=== PATIENT | male | born 1965 | race Caucasian/White ===

== ENCOUNTER → 2023-05-28 13:58 | Outpatient (CLI) | payer OTHER, MEDICAID, SELFPAY ==
--- NOTE | 2023-05-28 14:00 | DI.MRI.S_ITS ---
PROCEDURE: MR LUMBAR SPINE WO/W CON INDICATIONS: loss of bladder control, progressing weakness thorax to feet TECHNIQUE: Noncontrast sagittal T1 spin echo and T2 fast spin echo, sagittal STIR, axial T1 and T2 fast spin echo through the lumbar spine. In cases with scoliosis, additional coronal T2 fast spin echo may be performed. After the administration of contrast, sagittal and axial T1 spin echo with fat saturation through the lumbar spine. COMPARISON: None. FINDINGS: Image quality: Excellent. Alignment and curvature: There is normal bony alignment. Marrow: Marrow is of normal overall signal. No acute vertebral body compression fractures. No suspicious marrow enhancement. Spinal cord: Conus medullaris terminates at the L1 level. Visualized spinal cord demonstrates normal signal, without suspicious enhancement. Paraspinous soft tissues: No paravertebral masses or abnormal enhancement. T12-L1: Posterior disc bulge results in mild spinal canal stenosis. Narrowing of the lateral recess. No significant foraminal narrowing. L1-L2: Small disc bulge with concurrent central disc protrusions in mild spinal canal stenosis. Mild facet arthrosis results in mild bilateral foraminal narrowing. L2-L3: Broad disc bulge with concurrent central disc protrusion results in mild spinal canal stenosis and slight narrowing of the left lateral recess. Facet arthrosis results in mild bilateral foraminal narrowing. L3-L4: Broad disc bulge results in mild spinal canal narrowing and bilateral lateral recess narrowing. Facet arthrosis results in mild foraminal narrowing. L4-L5: Small central disc protrusion without significant spinal canal narrowing. Facet arthrosis results in mild foraminal narrowing. L5-S1: No significant spinal canal stenosis pre facet arthrosis field salts and mild foraminal narrowing.. IMPRESSION: Multilevel disc disease resulting in mild spinal canal stenosis. Multilevel facet arthrosis resulting in mild bilateral foraminal narrowing. Dictated by: Giorgio Verde M.D. on 05/28/2023 at 15:43 Approved by: Giorgio Verde M.D. on 05/28/2023 at 15:48
--- NOTE | 2023-05-28 14:00 | DI.MRI.S_ITS ---
PROCEDURE: MR THORACIC SPINE WO/W CON INDICATIONS: loss of bladder control, progressing weakness thorax to feet TECHNIQUE: Noncontrast sagittal T1 spin echo and T2 fast spin echo, sagittal STIR, axial T1 and T2 fast spin echo through the thoracic spine. After the administration of contrast, axial and sagittal T1 spin echo with fat saturation through the thoracic spine. COMPARISON: [facility], , MRI C AND T SPINE WO CONTRAST, 12/27/2017, 18:27. FINDINGS: Image quality: Excellent. Alignment and curvature: There is normal bony alignment. Marrow: Marrow is of normal overall signal. No acute vertebral body compression fractures. Spinal cord: Visualized thoracic spinal cord is of normal signal and size, without abnormal enhancement. Cord signal changes within the cervical spine. Paraspinous soft tissues: No paravertebral masses or abnormal enhancement. Miscellaneous: On the margins of the exam not completely delineated near the level of C5-C6 there is a large probably calcified posterior disc osteophyte complex resulting in severe spinal canal stenosis and associated cord disc changes t. This large posterior process extends several cervical segment levels. Posterior fixation of T1-T2 T8-T9: Prominent facet hypertrophy results in mild spinal canal stenosis and bilateral foraminal narrowing. T10-T11: Prominent facet hypertrophy resulting in mild spinal canal stenosis and bilateral foraminal narrowing. IMPRESSION: 1. Partially evaluated cervical spinal canal stenosis at C7-C8 from a large posterior disc osteophyte complex with cord signal changes. Recommend dedicated cervical imaging. 2. Multilevel [id number] cervical spinal canal stenosis at T8-T9 and T10-T11 secondary to facet hypertrophy. Dictated by: Giorgio Verde M.D. on 05/28/2023 at 15:31 Approved by: Giorgio Verde M.D. on 05/28/2023 at 15:42
== END ==
LOC: MRI 13:58
PROVIDERS: PCP Physician Assistant; Referring Provider Physician Assistant; Visit Provider Physician Assistant
DX: S39.92XA Unspecified injury of lower back, initial encounter (principal); M48.02 Spinal stenosis, cervical region; M48.04 Spinal stenosis, thoracic region; M47.814 Spondylosis without myelopathy or radiculopathy, thoracic region; M51.26 Other intervertebral disc displacement, lumbar region; M51.36 Other intervertebral disc degeneration, lumbar region; M47.816 Spondylosis without myelopathy or radiculopathy, lumbar region; M48.061 Spinal stenosis, lumbar region without neurogenic claudication; M62.50 Muscle wasting and atrophy, not elsewhere classified, unspecified site; R32 Unspecified urinary incontinence; R20.0 Anesthesia of skin; Z98.1 Arthrodesis status; W19.XXXA Unspecified fall, initial encounter
CPT/HCPCS: 72157; 72158; A9579

== ENCOUNTER 2025-01-25 15:23 | Emergency (ER) | payer OTHER, SELFPAY ==
[2025-01-25 15:47] VITALS: BP 149/74; PULSE 64; RESP 18; TEMP 36.9; O2SAT 98; BMI 22.4
[2025-01-25 19:25] VITALS: BP 113/65; PULSE 65; RESP 18; TEMP 36.8; O2SAT 98
--- NOTE | 2025-01-25 20:14 | ED.BACK ---
HPI - Back Pain/Injury <Kristian Du MD - Last Filed: 01/26/25 16:09> General Chief Complaint: Back Pain/Injury Stated Complaint: back pain/injury//weakness Time Seen by Provider: 01/25/25 19:31 Source: patient History of Present Illness HPI Narrative: 59-year-old male with ongoing back and neck pain issues, had multilevel cervical spine surgery 2016 [facility], more recently last year 2023 at [facility] had arthroscopic upper thoracic spinal clean out with collagen implant by neurosurgeon Dr. Luna, has been in contact with the office with complaint of recent weeks bilateral quadriceps area pain and spasm, taking oral ibuprofen, increasing low and mid upper back pain. Has ongoing intermittent urinary incontinence, recently worsened. Ambulates via walker at his home, has a roommate. He believes his neurosurgeon is placed order for MRI of the spine, unclear what levels were intended to be imaging, was hoping to get imaging of his spine tonight. No fevers or chills. Related Data Previous Rx's ?Medication ?Instructions ?Recorded hydrocodone 5 mg-acetaminophen 325 1 tab PO Q6H PRN pain #10 tabs 01/26/25 mg tablet methocarbamol 750 mg tablet 750 mg PO Q8H PRN muscle spasm #14 01/26/25 tabs prednisone 20 mg tablet 20 mg PO DAILY #5 tabs 01/26/25 Allergies Allergy/AdvReac Type Severity Reaction Status Date / Time No Known Allergies Allergy Uncoded 01/25/25 15:47 Patient History <Kristian Du MD - Last Filed: 01/26/25 16:09> Medical History (Updated 01/26/25 @ 09:29 by Ani Johnson DO) Chronic back pain (~2016) Chicken pox (~1974) Surgical History (Updated 02/24/22 @ 15:01 by Vania Ann PA-C) Anesthesia History of laminectomy History of knee surgery (~02/2017) Family History (Updated 08/29/21 @ 22:34 by Kelsi Wu) Mother Stroke Social History Smoking Status: Never smoker Smoking Status: Never smoker Exam <Kristian Du MD - Last Filed: 01/26/25 16:09> Narrative Exam Narrative: GENERAL: Well-developed patient, in mild distress. Sitting in wheelchair position of comfort, does not want to lie down flat on a gurney. HEAD: Atraumatic. Normocephalic. EYES: Pupils equal round and reactive. Extraocular motions intact. No scleral icterus. No injection or drainage. ENT: Nose without bleeding, purulent drainage. Throat without erythema, tonsillar hypertrophy or exudate. Airway patent. NECK: Trachea midline. Non tender CARDIOVASCULAR: Regular rate and rhythm without murmurs, gallops, or rubs. RESPIRATORY: Clear to auscultation. Breath sounds equal bilaterally. No wheezes, rales, or rhonchi. GASTROINTESTINAL: Abdomen soft, non-tender, nondistended. EXTREMITIES: No edema or joint tenderness. BACK: Nontender without deformity or crepitance. No flank tenderness. Upper thoracic midline well-healed scar. No midline tenderness or paraspinal muscular tenderness cervical spine, thoracic spine, lumbar spine. In sitting position of comfort patient able to extend his legs at knees about 60? bilaterally. NEURO: AOx3. Motor functions grossly nonfocal. SKIN: No rash or erythema of visible areas Initial Vital Signs Initial Vital Signs: Vital Signs Temperature 98.4 F 01/25/25 15:47 Pulse Rate 64 01/25/25 15:47 Respiratory Rate 18 01/25/25 15:47 Blood Pressure 149/74 H 01/25/25 15:47 Pulse Oximetry 98 01/25/25 15:47 Oxygen Delivery Method Room Air 01/25/25 15:47 <Ani Johnson DO - Last Filed: 01/26/25 14:26> Initial Vital Signs Initial Vital Signs: Vital Signs Temperature 98.4 F 01/25/25 15:47 Pulse Rate 64 01/25/25 15:47 Respiratory Rate 18 01/25/25 15:47 Blood Pressure 149/74 H 01/25/25 15:47 Pulse Oximetry 98 01/25/25 15:47 Oxygen Delivery Method Room Air 01/25/25 15:47 Course <Kristian Du MD - Last Filed: 01/26/25 16:09> Orders Ordered: Discontinued Medications Hydrocodone Bitart/Acetaminophen (Hydrocodone/Acet 5/325 Tablet) 1 tab PO NOW ONE Stop: 01/25/25 20:53 Last Admin: 01/25/25 21:05 Dose: 1 tab Documented By: Hydrocodone Bitart/Acetaminophen (Hydrocodone/Acet 5/325 Tablet) 2 tab PO NOW ONE Stop: 01/26/25 07:44 Last Admin: 01/26/25 07:48 Dose: 2 tab Documented By: AMANDA Hydrocodone Bitart/Acetaminophen (Hydrocodone/Acet 5/325 Tablet) 1 tab PO NOW ONE Stop: 01/26/25 12:16 Last Admin: 01/26/25 12:22 Dose: 1 tab Documented By: RB Methocarbamol (Methocarbamol 500 Mg Tablet) 500 mg PO NOW ONE Stop: 01/26/25 00:22 Last Admin: 01/26/25 00:28 Dose: 500 mg Documented By: CAROL Vital Signs Vital signs: Vital Signs - 8 hr 01/26/25 09:28 01/26/25 09:28 01/26/25 11:30 Temperature 97.9 F Pulse Rate 58 L 77 Respiratory Rate 14 Blood Pressure 115/65 Pulse Oximetry 98 98 Oxygen Delivery Method 01/26/25 11:31 01/26/25 11:31 01/26/25 11:47 Temperature Pulse Rate 69 64 Respiratory Rate 16 Blood Pressure 112/68 Pulse Oximetry 98 97 Oxygen Delivery Method Room Air 01/26/25 12:00 Temperature Pulse Rate Respiratory Rate Blood Pressure 118/71 Pulse Oximetry Oxygen Delivery Method <Ani Johnson, DO - Last Filed: 01/26/25 14:26> Orders Ordered: Discontinued Medications Hydrocodone Bitart/Acetaminophen (Hydrocodone/Acet 5/325 Tablet) 1 tab PO NOW ONE Stop: 01/25/25 20:53 Last Admin: 01/25/25 21:05 Dose: 1 tab Documented By: AREN Hydrocodone Bitart/Acetaminophen (Hydrocodone/Acet 5/325 Tablet) 2 tab PO NOW ONE Stop: 01/26/25 07:44 Last Admin: 01/26/25 07:48 Dose: 2 tab Documented By: AMANDA Hydrocodone Bitart/Acetaminophen (Hydrocodone/Acet 5/325 Tablet) 1 tab PO NOW ONE Stop: 01/26/25 12:16 Last Admin: 01/26/25 12:22 Dose: 1 tab Documented By: PABLO Methocarbamol (Methocarbamol 500 Mg Tablet) 500 mg PO NOW ONE Stop: 01/26/25 00:22 Last Admin: 01/26/25 00:28 Dose: 500 mg Documented By: CAROL Vital Signs Vital signs: Vital Signs - 8 hr 01/26/25 09:28 01/26/25 09:28 01/26/25 11:30 Temperature 97.9 F Pulse Rate 58 L 77 Respiratory Rate 14 Blood Pressure 115/65 Pulse Oximetry 98 98 Oxygen Delivery Method 01/26/25 11:31 01/26/25 11:31 01/26/25 11:47 Temperature Pulse Rate 69 64 Respiratory Rate 16 Blood Pressure 112/68 Pulse Oximetry 98 97 Oxygen Delivery Method Room Air 01/26/25 12:00 Temperature Pulse Rate Respiratory Rate Blood Pressure 118/71 Pulse Oximetry Oxygen Delivery Method MDM - Back Pain/Injury <Kristian Du MD - Last Filed: 01/26/25 16:09> Lab Data Labs: Urine Dip Bedside Urine Glucose Negative Bedside Urine Bilirubin - Negative Bedside Urine Ketone - Negative Urine Specific [place] 1.020 Bedside Urine Occult Blood - Negative Bedside Urine pH 6.0 Bedside Urine Protein - Negative Bedside Urine Urobilinogen - Negative Bedside Urine Nitrite - Negative Bedside Urine Leukocytes - Negative Esterase Imaging Data CT thoracic spine: Radiologist's Impression: [address] [address] [address] Scan Report Signed Patient: Giorgio Benavides MR#: [id number] : 1965 Acct:[id number] Age/Sex: 59 / M Date of Service: 01/25/25 Loc: ED Accession Number: [id number] Procedure: CT thoracic spine wo con Ordering Provider: Kristian Du MD PROCEDURE: CT THORACIC SPINE WO CON INDICATIONS: back pain, Tsp surgery 2023 TECHNIQUE: Noncontrast 3 mm thick sections acquired through the region of interest in the thoracic spine. Sagittal and coronal reformats were then constructed. For radiation dose reduction, the following was used: automated exposure control. COMPARISON: None. FINDINGS: Image quality: Excellent. Bones: There is normal overall bony alignment. No acute vertebral body compression fractures. No suspicious sclerotic or lytic bony lesions. Posterior cervical to thoracic spinal fusion with instrumentation with no hardware failure. Decompressive laminectomy in the lower cervical spine, partially imaged. Decompression at T8-T9 and T10-T11 on the right. Multilevel degenerative endplate osteophytes and facet arthropathy. Soft tissues: No paravertebral masses or hematomas. Visualized posteromedial lungs appear clear. IMPRESSION: No acute abnormality. Dictated by: Neftali Gonzales M.D. on 01/25/2025 at 22:16 Approved by: Neftali Gonzales M.D. on 01/25/2025 at 22:21 CT lumbar spine: Radiologist's Impression: Giorgio Benavides??59??M??1965 ? Allergy/Adv: [No Known Allergies] [address] [address] [address] Scan Report Signed Patient: Giorgio Benavides MR#: [id number] : 1965 Acct:[id number] Age/Sex: 59 / M Date of Service: 01/25/25 Loc: ED Accession Number: [id number] Procedure: CT lumbar spine wo con Ordering Provider: Kristian Du MD PROCEDURE: CT LUMBAR SPINE WO CON INDICATIONS: low back pain, quad/thigh spasms TECHNIQUE: Noncontrast 3 mm thick sections acquired from the T12 level to the sacrum. Sagittal and coronal reformats were constructed. For radiation dose reduction, the following was used: automated exposure control. COMPARISON: None. FINDINGS: Image quality: Excellent. Bones: There is normal bony alignment. No acute vertebral body compression fractures. No suspicious lytic or blastic bony lesions. No pars defects. Diffusely sclerotic changes of the osseous structures. L1-L2: Posterior longitudinal ligament ossification. Facet hypertrophy. Moderate right and severe left foraminal stenosis. Mild canal stenosis. L2-L3: Facet hypertrophy. Posterior longitudinal ligament ossification. Moderate bilateral foraminal stenosis. Mild central canal stenosis. L3-L4: Facet hypertrophy. Moderate bilateral foraminal stenosis. Mild central canal stenosis. L4-L5: Severe facet hypertrophy. Moderate left and mild right foraminal stenosis. Moderate central canal stenosis. L5-S1: Facet hypertrophy. Moderate bilateral foraminal stenosis. Mild central canal stenosis. Soft tissues: No retroperitoneal masses or hematomas. Visualized aorta is normal in caliber. IMPRESSION: Multilevel degenerative changes with foraminal and canal stenosis as above. Diffusely sclerotic and remodeled boned. This is favored to represent metabolic abnormality such as renal osteodystrophy or hyperparathyroidism. Dictated by: Neftali Gonzales M.D. on 01/25/2025 at 22:21 Approved by: Neftali Gonzales M.D. on 01/25/2025 at 22:25 [facility] Narrative Medical decision making narrative: 59-year-old male with remote cervical spine surgery [facility], more recent 2023 upper thoracic spinal surgery [facility], having mid upper and low back pain, quadriceps muscle spasm, awaiting outpatient MRI, was hoping to get MRI. He arrived this evening when MRI is not available here at this time. We discussed CT imaging. He would like to proceed with available CT spinal imaging at this time. CT thoracic spine and lumbar spine ordered. He declined injectable pain medications and muscle relaxants and steroids. He would like oral pain medication, given oral hydrocodone/APAP dose. Urine dip negative. 2230, pain improved after oral hydrocodone dose, continues to decline muscle relaxant, declined steroid dose. 2250, CT thoracic spine no significant changes. CT lumbar spine shows multilevel foraminal moderate narrowing, L1 area of left-sided severe foraminal narrowing, multiple levels of moderate/mild spinal stenosis. See radiology report. He lives on [facility], expresses difficulty coordinating further spinal imaging, wants to stay for MRI lumbar spine, no obvious contraindications, MRI lumbar spine order placed. 0100, initially declined muscle relaxant, now requesting. We will give oral Robaxin/methocarbamol. 0700, MRI Lsp to be performed later this morning. Signed out to Dr Johnson. <Ani Johnson, DO - Last Filed: 01/26/25 14:26> Lab Data Labs: Urine Dip Bedside Urine Glucose Negative Bedside Urine Bilirubin - Negative Bedside Urine Ketone - Negative Urine Specific [place] 1.020 Bedside Urine Occult Blood - Negative Bedside Urine pH 6.0 Bedside Urine Protein - Negative Bedside Urine Urobilinogen - Negative Bedside Urine Nitrite - Negative Bedside Urine Leukocytes - Negative Esterase Imaging Data MR Lumbar: Radiologist's Impression: PROCEDURE: MR LUMBAR SPINE WO CON INDICATIONS: low back pain, quads spasms multilevel mod/sev chges CT Lsp TECHNIQUE: Noncontrast sagittal T1 spin echo and T2 fast echo, sagittal STIR, and T2 fast spin echo through the lumbar spine. In cases with scoliosis, additional coronal T2 fast spin echo may be performed. COMPARISON: [facility], MR, MR LUMBAR SPINE WO/W CON, 05/28/2023, 14:19. [facility], CT, CT LUMBAR SPINE WO CON, 01/25/2025, 20:54. FINDINGS: Image quality: Diagnostic Alignment and Curvature: There is normal bony alignment. Bone Marrow: Marrow demonstrates heterogeneous signal intensity with overall decreased signal intensity on both T1 and T2 sequences. This correlates with diffusely sclerotic changes of the vertebral bodies noted on recent CT. No acute vertebral body compression fractures. Spinal Cord: Conus medullaris terminates at the L1 level. Visualized cord demonstrates normal signal and size. Paraspinous Soft Tissues: No paravertebral masses. T12-L1: Bilateral facet arthropathy. No significant neuroforaminal or spinal canal stenosis. L1-L2: Moderate bilateral facet arthropathy. Minimal disc bulge. Mild spinal canal stenosis. Moderate-severe bilateral neuroforaminal stenosis. L2-L3: Moderate bilateral facet arthropathy. Ligamentum flavum thickening. Small symmetric disc bulge. Mild spinal canal stenosis. Moderate bilateral neuroforaminal stenosis. L3-L4: Moderate bilateral facet arthropathy and ligamentum flavum thickening. Symmetric disc bulge. Mild-moderate spinal canal stenosis. Mild right and moderate left bilateral neuroforaminal stenosis. L4-L5: Moderate-severe bilateral facet arthropathy and ligamentum flavum thickening. Prominent symmetric disc bulge. Moderate spinal canal stenosis. There is moderate right and moderate-severe left bilateral neuroforaminal stenosis. L5-S1: Severe bilateral facet arthropathy and ligamentum flavum thickening. Small symmetric disc bulge. Mild spinal canal stenosis. Moderate-severe bilateral neuroforaminal stenosis. IMPRESSION: Lumbar spine without acute abnormalities. Multilevel, multifactorial lumbar spondylosis as detailed above by vertebral body level. There are variable degrees of spinal canal stenosis and bilateral neuroforaminal stenosis. Findings are most pronounced at L4-5. Redemonstration of heterogeneous signal intensity of the osseous marrow which is again favored to represent a metabolic abnormality. Consider renal osteodystrophy or hyperparathyroidism. Dictated by: Fransisco Aguilera M.D. on 01/26/2025 at 8:51 MDM Narrative Medical decision making narrative: 59-year-old male with remote cervical spine surgery [facility], more recent 2023 upper thoracic spinal surgery [facility], having mid upper and low back pain, quadriceps muscle spasm, awaiting outpatient MRI, was hoping to get MRI. He arrived this evening when MRI is not available here at this time. We discussed CT imaging. He would like to proceed with available CT spinal imaging at this time. CT thoracic spine and lumbar spine ordered. He declined injectable pain medications and muscle relaxants and steroids. He would like oral pain medication, given oral hydrocodone/APAP dose. Urine dip negative. 2230, pain improved after oral hydrocodone dose, continues to decline muscle relaxant, declined steroid dose. 2249, CT thoracic spine no significant changes. CT lumbar spine shows multilevel foraminal moderate narrowing, L1 area of left-sided severe foraminal narrowing, multiple levels of moderate/mild spinal stenosis. See radiology report. He lives on [facility], expresses difficulty coordinating further spinal imaging, wants to stay for MRI lumbar spine, no obvious contraindications, MRI lumbar spine order placed. 0100, initially declined muscle relaxant, now requesting. We will give oral Robaxin/methocarbamol. 0700, MRI Lsp to be performed later this morning. Signed out to Dr Johnson. 0900 Dr. Johnson I have seen evaluated patient myself. Signed out from Dr. Du I have reviewed notes. MRI shows no evidence of cauda equina or epidural abscess. It does show multilevel multifocal lumbar spondylosis most pronounced at L4-L5. He has received Vincent and methocarbamol here in the ED which has helped. No need for emergent consultation but do recommend outpatient follow up. He has a spinal surgeon at [facility] images have been pushed, and disc is made for him. 12:11, neurosurgery ok to go home pain manegment only. Will send note to office and have outpatient MRI of thoracic spine done. Discussion with recommendations with patient. He understands and will follow-up. Pain is better but needs a Vincent prior to leaving. Discharge Plan Departure Patient Disposition: Home Clinical Impression: Lumbar stenosis Qualifiers: Neurogenic claudication status: unspecified Qualified Code(s): M48.061 - Spinal stenosis, lumbar region without neurogenic claudication Instructions: Low Back Pain Activity Restrictions/Additional Instructions: *You have been diagnosed with spinal canal stenosis *What to do: You do have narrowing of your spinal canal. No need for emergency surgery today. Please call and follow-up with your spine surgeon at [facility]. Images have been pushed and a disc has been given to *Continue to take medications as directed Prednisone 20 mg once a day for 5 days Vincent 1-2 tablets every 6 hours if needed for severe pain Methocarbamol 750 mg every 8 hours if needed for muscle spasm *Follow up with your primary care provider in 2-3 days or call [phone] *Return to ER if you should have increasing weakness [or] any new, worsening or concerning symptoms Prescriptions: New prednisone 20 mg tablet 20 mg PO DAILY Qty: 5 0RF hydrocodone-acetaminophen 5-325 mg tablet 1 tab PO Q6H PRN (Reason: pain) Qty: 10 0RF methocarbamol 750 mg tablet 750 mg PO Q8H PRN (Reason: muscle spasm) Qty: 14 0RF Referrals: Lauren Morris PA-C [Primary Care Provider, Medical] Stand Alone Forms: Patient Portal/API
--- NOTE | 2025-01-25 20:38 | PC.NURSE ---
Pt provided a urine sample prior to shift change that U/A was not done on. Pt unable to give new urine sample at this time. Will continue to check with pt to obtain.
--- NOTE | 2025-01-25 20:52 | DI.CT.S_ITS ---
PROCEDURE: CT THORACIC SPINE WO CON INDICATIONS: back pain, Tsp surgery 2023 TECHNIQUE: Noncontrast 3 mm thick sections acquired through the region of interest in the thoracic spine. Sagittal and coronal reformats were then constructed. For radiation dose reduction, the following was used: automated exposure control. COMPARISON: None. FINDINGS: Image quality: Excellent. Bones: There is normal overall bony alignment. No acute vertebral body compression fractures. No suspicious sclerotic or lytic bony lesions. Posterior cervical to thoracic spinal fusion with instrumentation with no hardware failure. Decompressive laminectomy in the lower cervical spine, partially imaged. Decompression at T8- T9 and T10-T11 on the right. Multilevel degenerative endplate osteophytes and facet arthropathy. Soft tissues: No paravertebral masses or hematomas. Visualized posteromedial lungs appear clear. IMPRESSION: No acute abnormality. Dictated by: Neftali Gonzales M.D. on 01/25/2025 at 22:16 Approved by: Neftali Gonzales M.D. on 01/25/2025 at 22:21
--- NOTE | 2025-01-25 20:53 | DI.CT.S_ITS ---
PROCEDURE: CT LUMBAR SPINE WO CON INDICATIONS: low back pain, quad/thigh spasms TECHNIQUE: Noncontrast 3 mm thick sections acquired from the T12 level to the sacrum. Sagittal and coronal reformats were constructed. For radiation dose reduction, the following was used: automated exposure control. COMPARISON: None. FINDINGS: Image quality: Excellent. Bones: There is normal bony alignment. No acute vertebral body compression fractures. No suspicious lytic or blastic bony lesions. No pars defects. Diffusely sclerotic changes of the osseous structures. L1-L2: Posterior longitudinal ligament ossification. Facet hypertrophy. Moderate right and severe left foraminal stenosis. Mild canal stenosis. L2-L3: Facet hypertrophy. Posterior longitudinal ligament ossification. Moderate bilateral foraminal stenosis. Mild central canal stenosis. L3-L4: Facet hypertrophy. Moderate bilateral foraminal stenosis. Mild central canal stenosis. L4-L5: Severe facet hypertrophy. Moderate left and mild right foraminal stenosis. Moderate central canal stenosis. L5-S1: Facet hypertrophy. Moderate bilateral foraminal stenosis. Mild central canal stenosis. Soft tissues: No retroperitoneal masses or hematomas. Visualized aorta is normal in caliber. IMPRESSION: Multilevel degenerative changes with foraminal and canal stenosis as above. Diffusely sclerotic and remodeled boned. This is favored to represent metabolic abnormality such as renal osteodystrophy or hyperparathyroidism. Dictated by: Neftali Gonzales M.D. on 01/25/2025 at 22:21 Approved by: Neftali Gonzales M.D. on 01/25/2025 at 22:25
--- NOTE | 2025-01-25 22:47 | DI.MRI.S_ITS ---
PROCEDURE: MR LUMBAR SPINE WO CON INDICATIONS: low back pain, quads spasms multilevel mod/sev chges CT Lsp TECHNIQUE: Noncontrast sagittal T1 spin echo and T2 fast echo, sagittal STIR, and T2 fast spin echo through the lumbar spine. In cases with scoliosis, additional coronal T2 fast spin echo may be performed. COMPARISON: [facility], MR, MR LUMBAR SPINE WO/W CON, 05/28/2023, 14:19. [facility], CT, CT LUMBAR SPINE WO CON, 01/25/2025, 20:54. FINDINGS: Image quality: Diagnostic Alignment and Curvature: There is normal bony alignment. Bone Marrow: Marrow demonstrates heterogeneous signal intensity with overall decreased signal intensity on both T1 and T2 sequences. This correlates with diffusely sclerotic changes of the vertebral bodies noted on recent CT. No acute vertebral body compression fractures. Spinal Cord: Conus medullaris terminates at the L1 level. Visualized cord demonstrates normal signal and size. Paraspinous Soft Tissues: No paravertebral masses. T12-L1: Bilateral facet arthropathy. No significant neuroforaminal or spinal canal stenosis. L1-L2: Moderate bilateral facet arthropathy. Minimal disc bulge. Mild spinal canal stenosis. Moderate-severe bilateral neuroforaminal stenosis. L2-L3: Moderate bilateral facet arthropathy. Ligamentum flavum thickening. Small symmetric disc bulge. Mild spinal canal stenosis. Moderate bilateral neuroforaminal stenosis. L3-L4: Moderate bilateral facet arthropathy and ligamentum flavum thickening. Symmetric disc bulge. Mild-moderate spinal canal stenosis. Mild right and moderate left bilateral neuroforaminal stenosis. L4-L5: Moderate-severe bilateral facet arthropathy and ligamentum flavum thickening. Prominent symmetric disc bulge. Moderate spinal canal stenosis. There is moderate right and moderate-severe left bilateral neuroforaminal stenosis. L5-S1: Severe bilateral facet arthropathy and ligamentum flavum thickening. Small symmetric disc bulge. Mild spinal canal stenosis. Moderate-severe bilateral neuroforaminal stenosis. IMPRESSION: Lumbar spine without acute abnormalities. Multilevel, multifactorial lumbar spondylosis as detailed above by vertebral body level. There are variable degrees of spinal canal stenosis and bilateral neuroforaminal stenosis. Findings are most pronounced at L4-5. Redemonstration of heterogeneous signal intensity of the osseous marrow which is again favored to represent a metabolic abnormality. Consider renal osteodystrophy or hyperparathyroidism. Dictated by: Fransisco Aguilera M.D. on 01/26/2025 at 8:51 Approved by: Fransisco Aguilera M.D. on 01/26/2025 at 9:01
[2025-01-26 07:42] VITALS: BP 114/64; PULSE 69; RESP 15; O2SAT 99
[2025-01-26 09:28] VITALS: BP 115/65; PULSE 58; RESP 14; TEMP 36.6; O2SAT 98
[2025-01-26 11:30] VITALS: PULSE 77; O2SAT 98
[2025-01-26 11:31] VITALS: BP 112/68; PULSE 69; RESP 16; O2SAT 98
[2025-01-26 11:47] VITALS: PULSE 64; O2SAT 97
[2025-01-26 12:00] VITALS: BP 118/71
== END 2025-01-26 12:30 | disposition home or self-care (01) ==
PROVIDERS: Emergency Provider Emergency Medicine; PCP Physician Assistant
DX: M48.061 Spinal stenosis, lumbar region without neurogenic claudication (principal); M54.6 Pain in thoracic spine; Z98.890 Other specified postprocedural states
CPT/HCPCS: 72128; 72131; 72148; 81003; 99283; 99284